=== PATIENT | female | born 1945 | race Caucasian/White ===

== ENCOUNTER 2022-01-04 07:07 | Day surgery (SDC) | payer OTHER ==
[~2022-01-04] VITALS: Ht 165.1 cm; Wt 84.4 kg
[2022-01-04] MEDS ORDERED: BENZOCAINE 20% 0.5mL UD SPRAY MM ONE (08:07)
[2022-01-04] MEDS: fentaNYL CITRATE/PF 100 MCG/2 ML AMP ONE ×2 (10:05→10:32)
[2022-01-04] MEDS: MIDAZOLAM HCL 5 MG/5 ML VIAL ONE ×4 (10:05→10:41)
[2022-01-04 14:20] VITALS: BP_SYST 154
== END 2022-01-04 12:15 | disposition home or self-care (01) ==
LOC: SDS 07:07 → SMU 07:08 → SDS 12:15
PROVIDERS: ATTEND Internal Medicine
DX: K92.1 Melena (principal); D12.3 Benign neoplasm of transverse colon; D12.5 Benign neoplasm of sigmoid colon; K29.50 Unspecified chronic gastritis without bleeding; D64.9 Anemia, unspecified; K44.9 Diaphragmatic hernia without obstruction or gangrene; K64.8 Other hemorrhoids; K57.30 Diverticulosis of large intestine without perforation or abscess without bleeding; Z79.01 Long term (current) use of anticoagulants; Z79.899 Other long term (current) drug therapy; Z87.891 Personal history of nicotine dependence; Z20.822 Contact with and (suspected) exposure to COVID-19
CPT/HCPCS: 87426; 36415; 45385; 43239; 82962; 88305; 88312; 88313; 99152; 99153; G0378; J2250; J3010; 45384